=== PATIENT | female | born 1970 | race Caucasian/White ===

== ENCOUNTER → 2023-01-08 | Day surgery (SDC) | payer BC ==
[2023-01-07 16:20] LABS: Potassium 3.7 mEq/L (3.5-5.1)
[~2023-01-08] MED LIST: FENTANYL CITR 100 MCG/2 ML ONE; LIDOCAINE 1% MPF 5 ML VIAL ONE; LIDOCAINE 2% MPF 5 ML VIAL ONE; MIDAZOLAM HCL 2 MG/2 ML INJ ONE; ONDANSETRON 4 MG/2 ML VIAL ONE; Ringers Lactate 1,000 ML IV ONE; SUCCINYLCHOLINE 20 MG/ML (10 ML) IV ONE; propofoL 200 MG/20 ML VIAL IV ONE
[2023-01-08 13:46] VITALS: TEMP 97
[2023-01-08 13:48] VITALS: O2SAT 100
[2023-01-08 13:49] VITALS: BP 138/72
--- NOTE | 2023-01-08 16:59 | EKG ---
Test Date: 2023-01-07 Test Time: 15:44:40 [employer] Professor: MATEO MEASUREMENT RESULTS: Intervals: Rate: 68 CT: 146 QRSD: 76 QT: 384 QTc: 408 Cash: P: 46 CT: 146 QRS: 90 T: 61 INTERPRETIVE STATEMENTS: Normal sinus rhythm with sinus arrhythmia Rightward axis Borderline ECG Compared to ECG 01/02/2007 13:40:28 Right-axis deviation now present Electronically Signed On 01-08-23 16:56:38 CDT by Giovany Toney
== END ==
LOC: PRE 09:46
PROVIDERS: ATTEND Surgery
DX: K21.9 Gastro-esophageal reflux disease without esophagitis (principal); R10.13 Epigastric pain; Z53.09 Procedure and treatment not carried out because of other contraindication
CPT/HCPCS: 36415; 80048; 93005; J2001; J2704; J7120

== ENCOUNTER 2023-01-09 08:12 | Day surgery (SDC) | payer BC ==
[2023-01-09] MEDS ORDERED: Ringers Lactate 1,000 ML IV ONE (09:20)
[2023-01-09] MEDS ORDERED: FENTANYL CITR 100 MCG/2 ML ONE (10:46)
[2023-01-09] MEDS ORDERED: SUCCINYLCHOLINE 20 MG/ML (10 ML) IV ONE (10:46)
[2023-01-09] MEDS ORDERED: LIDOCAINE 2% MPF 5 ML VIAL ONE (10:46)
[2023-01-09] MEDS ORDERED: propofoL 200 MG/20 ML VIAL IV ONE (10:46)
[2023-01-09] MEDS ORDERED: ONDANSETRON 4 MG/2 ML VIAL ONE ×2 (10:46→11:18)
[2023-01-09] MEDS ORDERED: MIDAZOLAM HCL 2 MG/2 ML INJ ONE (10:46)
[2023-01-09] MEDS ORDERED: dexAMETHasone 4 MG/ML VIAL ONE (11:18)
[2023-01-09 11:46] VITALS: O2SAT 100
[2023-01-09 13:26] VITALS: BP 129/68; TEMP 97.3
== END 2023-01-09 12:30 | disposition home or self-care (01) ==
LOC: OR 08:12
PROVIDERS: ATTEND Surgery
PROC: 0DBB8ZX Excision of Ileum, Via Natural or Artificial Opening Endoscopic, Diagnostic (ICD-10-PCS; 2023-01-09)
PROC: 0DB98ZX Excision of Duodenum, Via Natural or Artificial Opening Endoscopic, Diagnostic (ICD-10-PCS; 2023-01-09)
PROC: 0DB68ZX Excision of Stomach, Via Natural or Artificial Opening Endoscopic, Diagnostic (ICD-10-PCS; 2023-01-09)
PROC: 0DB38ZX Excision of Lower Esophagus, Via Natural or Artificial Opening Endoscopic, Diagnostic (ICD-10-PCS; 2023-01-09)
PROC: 0DB48ZX Excision of Esophagogastric Junction, Via Natural or Artificial Opening Endoscopic, Diagnostic (ICD-10-PCS; 2023-01-09)
PROC: 0DBH8ZX Excision of Cecum, Via Natural or Artificial Opening Endoscopic, Diagnostic (ICD-10-PCS; principal; 2023-01-09 10:00)
PROC: 0DBN8ZX Excision of Sigmoid Colon, Via Natural or Artificial Opening Endoscopic, Diagnostic (ICD-10-PCS; 2023-01-09 10:00)
DX: Z12.11 Encounter for screening for malignant neoplasm of colon (principal); K64.8 Other hemorrhoids; K21.9 Gastro-esophageal reflux disease without esophagitis; K29.50 Unspecified chronic gastritis without bleeding
CPT/HCPCS: 88312; 88305; 45380; 43239; J2704; J1100; J2001; J2250; J3010; J2405 ×2; J7120